=== PATIENT | female | born 1995 | race Caucasian/White ===

== ENCOUNTER 2017-01-18 00:06 | Emergency (ER) | payer OTHER ==
[~2017-01-18] VITALS: Ht 160 cm; Wt 76.5 kg
[2017-01-18 00:11] VITALS: Ht 160 cm; Wt 76.5 kg
[2017-01-18 00:54] LABS: URINE BLOOD (Dip) POC 2+ (NEGATIVE)
--- NOTE | 2017-01-18 01:27 | ERA ---
ER Documentation Chief Complaint Date/Time DATE: 01/18/17 TIME: 01:24 Chief Complaint back pain x2 days, cough x 6 days HPI This is an otherwise healthy 21-year-old female presenting with a chief complaint of cough 2 weeks and right abdominal/back pain 2-3 days. Patient has not done anything to relieve the symptoms. Patient denies fever, vomiting, nausea, diarrhea, constipation, headache, pharyngitis or sinus congestion. Patient denies any medical history, recent travel or recent antibiotic use. Has no other complaints and describes no other associated manifestations. ROS All systems reviewed and are negative except as per history of present illness. Medications Home Meds Active Scripts Acetaminophen* (Tylenol*) 325 Mg Tablet, 1 TAB PO Q6 Y for PAIN AND OR ELEVATED TEMP, #20 TAB Prov:MEHNAZ CROOK PA-C 01/18/17 Nitrofurantoin Monohyd Macrocr* (Macrobid*) 100 Mg Capsr, 100 MG PO HS for 5 Days, CAP Prov:MEHNAZ CROOK PA-C 01/18/17 Allergies Allergies: Coded Allergies: No Known Allergy (Unverified , 01/18/17) PMhx/Soc Medical and Surgical Hx: pt denies Medical Hx, pt denies Surgical Hx Hx Alcohol Use: No Hx Substance Use: No Hx Tobacco Use: Yes Smoking Status: Former smoker Physical Exam Vitals Vital Signs Date Time Temp Pulse Resp B/P Pulse Ox O2 Delivery O2 Flow Rate FiO2 01/18/17 00:11 98.2 83 20 113/65 98 Physical Exam Const: Well-appearing overweight 21-year-old female in no acute distress Head: Atraumatic Eyes: Normal Conjunctiva ENT: Normal External Ears, Nose and Mouth. Neck: Full range of motion..~ No meningismus. Resp: Clear to auscultation bilaterally. Good air movement with equal chest expansion. Cardio: Regular rate and rhythm, no murmurs Abd: Mild suprapubic tenderness. Soft, non tender, non distended. Normal bowel sounds Skin: No petechiae or rashes Back: No midline or flank tenderness. No CVA tenderness. Ext: No cyanosis, or edema Neur: Awake and alert Psych: Normal Mood and Affect Results 24 hrs Laboratory Tests Test 01/18/17 00:58 Bedside Urine pH (LAB) 7.5 Bedside Urine Protein (LAB) Negative Bedside Urine Glucose (UA) Negative Bedside Urine Ketones (LAB) Negative Bedside Urine Blood 2+ Bedside Urine Nitrite (LAB) Negative Bedside Urine Leukocyte Esterase (L Trace Current Medications Medications (Trade) Dose Ordered Sig/Anita Route PRN Reason Start Time Stop Time Status Last Admin Dose Admin Acetaminophen (Tylenol Tab) 650 mg ONCE ONCE PO 01/18/17 01:30 01/18/17 01:31 DC 01/18/17 01:45 Procedures/MDM This is a otherwise healthy 21-year-old female presenting with a chief complaint of cough 1 week and back/right abdominal pain 2 days as described in history and physical examination. Suprapubic tenderness and physical exam led to urine dip to evaluate for infection. A urine was also taken which was negative. Urine dip revealed the following: Trace leukocyte esterase. Chest x-ray was taken due to the continued symptoms. Chest x-ray was read by the radiologist and reveal the following impression: No active cardiopulmonary disorder. At this time the most likely diagnosis is urinary tract infection of unspecified location. At this time I have little suspicion for pneumonia, malignancy, pneumothorax, foreign body, asthma, pulmonary embolism. I have spoken with them regarding their condition and future management. They have verbally responded that they understand and agree to their status and treatment plan. I have spoke with my attending who agrees with the assessment and plan. The patients vitals are stable, and their current condition is appropriate for discharge. The patient will be given discharge instructions with return precautions. Patient will be discharged with Keflex for urinary tract infection and acetaminophen for fever control. Departure Diagnosis: Primary Impression: Urinary tract infection Qualified Code: N39.0 - Urinary tract infection with hematuria, site unspecified Additional Impression: Cough Condition: Stable Additional Instructions: Follow up with your PCP within the next 1-3 days for a more thorough evaluation and a possible referral to a specialist. Return the the emergency department immediately if symptoms worsen or change. If you have any questions regarding medications, ask your pharmacist or us before you leave. If any adverse reactions occur while taking your medications, discontinue the treatment and return to the emergency department immediately. Take your medications as directed, and complete the entire course of treatment. MEHNAZ CROOK PA-C Jan 18, 2017 01:27
[2017-01-18] MEDS ORDERED: ACETAMINOPHEN 325 MG TAB PO ONE (01:30)
--- NOTE | 2017-01-18 02:28 | RADRPT ---
PROCEDURE: XR Chest. CLINICAL INDICATION: Cough. TECHNIQUE: PA and Lateral views of the chest were obtained. COMPARISON: None. FINDINGS: The cardiomediastinal silhouette is within normal limits. The lungs are clear. No signs of pleural f luid or pneumothorax are seen. The osseous structures and soft tissues are unremarkable. IMPRESSION: No evidence for active cardiopulmonary disease. RPTAT: [facility]U Physician Morteza Date Time Electronically viewed and signed by Physician Morteza on 01/18/2017 02:27 RS/
[2017-01-18] MEDS ORDERED: NITR-58 PO (02:31)
[2017-01-18] MEDS ORDERED: ACET325T33 PO (02:32)
== END 2017-01-18 03:09 | disposition home or self-care (01) ==
LOC: FTE 00:06
DX: N39.0 Urinary tract infection, site not specified (principal); R05 Cough; Z87.891 Personal history of nicotine dependence
CPT/HCPCS: 71020; 81003; Z7502; Z7610

== ENCOUNTER 2017-02-24 17:23 | Emergency (ER) | payer OTHER ==
[~2017-02-24] VITALS: Wt 76.0 kg
[~2017-02-24 17:23] MED LIST: ACET325T33 PO; NITR-58 PO
[2017-02-24] MEDS ORDERED: LIDOCAINE/MYLANTA 40 ML BTL PO ONE (18:30)
[2017-02-24] MEDS ORDERED: RANI150T9 PO (18:31)
[2017-02-24] MEDS ORDERED: OMEP20CA16 PO (18:32)
--- NOTE | 2017-02-24 21:02 | ERD ---
ER Documentation Chief Complaint Date/Time DATE: 02/24/17 TIME: 20:58 Chief Complaint EPIGASTRIC PAIN, CONSTIPATION X 3 DAYS HPI This patient is a 21-year-old female presenting to the emergency department with complaints of epigastric pain ongoing for the past 3 days. She does have a history of acid reflux. Spicy foods aggravate her symptoms. Additionally she has not had a bowel movement in the past 2 days, however she has had intermittent constipation in the past. She reports 6 out of 10 pain epigastric. She has been taking Tums with no relief. She denies alleviating factors currently. She denies urinary symptoms, nausea, vomiting, diarrhea, lower abdominal pain, dizziness, chest pain, shortness of breath, or other symptoms currently. ROS All systems reviewed and are negative except as per history of present illness. Medications Home Meds Active Scripts Omeprazole* (Omeprazole*) 20 Mg Capsule.dr, 20 MG PO DAILY, #30 Prov:IRENA ZARAGOZA PA-C 02/24/17 Ranitidine Hcl* (Zantac*) 150 Mg Tablet, 150 MG PO BID Y for EPIGASTRIC PAIN, # 30 TAB Prov:IRENA ZARAGOZA PA-C 02/24/17 Acetaminophen* (Tylenol*) 325 Mg Tablet, 1 TAB PO Q6 Y for PAIN AND OR ELEVATED TEMP, #20 TAB Prov:MEHNAZ CROOK PA-C 01/18/17 Nitrofurantoin Monohyd Macrocr* (Macrobid*) 100 Mg Capsr, 100 MG PO HS for 5 Days, CAP Prov:MEHNAZ CROOK PA-C 01/18/17 Allergies Allergies: Coded Allergies: No Known Allergy (Unverified , 01/18/17) PMhx/Soc Medical and Surgical Hx: pt denies Medical Hx, pt denies Surgical Hx History of Surgery: No Anesthesia Reaction: No Hx Neurological Disorder: No Hx Cardiac Disorders: No Hx Psychiatric Problems: No Hx Miscellaneous Medical Probl: No Hx Alcohol Use: No Hx Substance Use: No Hx Tobacco Use: Yes Smoking Status: Never smoker Physical Exam Vitals Vital Signs Date Time Temp Pulse Resp B/P Pulse Ox O2 Delivery O2 Flow Rate FiO2 02/24/17 17:26 99.3 67 18 124/72 99 Physical Exam Const: Nontoxic, well-appearing female in no acute distress. Head: Atraumatic Eyes: Normal Conjunctiva ENT: Normal External Ears, Nose and Mouth. Neck: Full range of motion..~ No meningismus. Resp: Clear to auscultation bilaterally Cardio: Regular rate and rhythm, no murmurs Abd: Soft, mild midepigastric tenderness to palpation but no right upper quadrant tenderness, no McBurney's point tenderness, no rebound tenderness or guarding, non distended. Normal bowel sounds. Negative Chavarria sign. Skin: No petechiae or rashes Back: No midline or flank tenderness Ext: No cyanosis, or edema Neur: Awake and alert Psych: Normal Mood and Affect Results 24 hrs Current Medications Medications (Trade) Dose Ordered Sig/Anita Route PRN Reason Start Time Stop Time Status Last Admin Dose Admin Miscellaneous Medication (Gi Cocktail (2)) 40 ml ONCE ONCE PO 02/24/17 18:30 02/24/17 18:31 DC 02/24/17 18:41 Procedures/MDM 21-year-old female presenting for epigastric pain. She has had this in the past. She had stable vital signs. She had no physical examination signs concerning for appendicitis or cholecystitis. I believe the patient's symptoms are likely secondary to gastroesophageal reflux disease. She is given a GI cocktail in the department and she was feeling improved on reevaluation. She was given prescriptions for omeprazole and ranitidine. I have low suspicion for acute abdomen, acute coronary syndrome, bowel obstruction, mesenteric ischemia, sepsis, or other emergent conditions. The patient was hemodynamically stable prior to discharge. She agreed with the discharge plan and diagnosis. Strict ER return precautions were discussed. The patient is to have close follow-up with a primary care physician. Departure Diagnosis: Primary Impression: Epigastric pain Condition: Fair Patient Instructions: Gerd (Adult) Referrals: [facility] YOU HAVE RECEIVED A MEDICAL SCREENING EXAM AND THE RESULTS INDICATE THAT YOU DO NOT HAVE A CONDITION THAT REQUIRES URGENT TREATMENT IN THE EMERGENCY DEPARTMENT. FURTHER EVALUATION AND TREATMENT OF YOUR CONDITION CAN WAIT UNTIL YOU ARE SEEN IN YOUR DOCTORS OFFICE WITHIN THE NEXT 1-2 DAYS. IT IS YOUR RESPONSIBILITY TO MAKE AN APPOINTMENT FOR FOLOW-UP CARE. IF YOU HAVE A PRIMARY DOCTOR --you should call your primary doctor and schedule an appointment IF YOU DO NOT HAVE A PRIMARY DOCTOR YOU CAN CALL OUR PHYSICIAN REFERRAL HOTLINE AT IF YOU CAN NOT AFFORD TO SEE A PHYSICIAN YOU CAN CHOSE FROM THE FOLLOWING [facility] CLINICS [facility] [address] [facility] [address] [facility] [address] [facility] [address] [facility] [address] [facility]. [facility] [address] Additional Instructions: Follow up with your PCP within the next 1-3 days for a repeat evaluation. If you require a referral to a specialist, your Primary Care Provider may be able to provide this for you. In most patient cases, a referral is not required. If you have further questions regarding this matter, please ask your Primary Care Provider. Return the the emergency department immediately if symptoms worsen or change. If you have any questions regarding medications, ask your pharmacist or us before you leave. If any adverse reactions, occur while taking your medications, discontinue the treatment and return to the emergency department immediately. If any new or worsening symptoms, uncontrolled fevers, or other unexplained symptoms occur, return to the emergency department immediately. Take your medications as directed, and complete the entire course of treatment. IRENA ZARAGOZA PA-C Feb 24, 2017 21:02
== END 2017-02-24 18:45 | disposition home or self-care (01) ==
LOC: FTE 17:23
DX: R10.13 Epigastric pain (principal); Z87.891 Personal history of nicotine dependence
CPT/HCPCS: Z7502; Z7610; 99283

== ENCOUNTER 2017-04-23 11:54 | Emergency (ER) | payer OTHER ==
[~2017-04-23] VITALS: Ht 160 cm; Wt 76.5 kg
[~2017-04-23 11:54] MED LIST changes: +IBUP-1542 PO; +OMEP20CA16 PO; +RANI150T9 PO
[2017-04-23 12:01] VITALS: Ht 160 cm; Wt 76.5 kg
[2017-04-23] MEDS ORDERED: SOD CHLORIDE 0.9% 1,000 ML IV STA (13:47)
[2017-04-23] MEDS ORDERED: MECLIZINE 12.5 MG TAB PO ONE (14:00)
[2017-04-23 14:21] LABS: ADD UMIC YES; UR ASCORBIC ACID NEGATIVE (NEGATIVE); UR BACTERIA FEW /HPF (NONE SEEN); UR BILIRUBIN (Dip) NEGATIVE (NEGATIVE); UR BLOOD (Dip) 3+ mg/dL (NEGATIVE); UR CLARITY CLEAR (CLEAR); UR COLOR YELLOW (YELLOW); UR GLUCOSE (Dip) NEGATIVE (NEGATIVE); UR KETONES (Dip) NEGATIVE (NEGATIVE); UR LEUKOCYTE ESTERASE (Dip) NEGATIVE Leu/ul (NEGATIVE); UR NITRITE (Dip) NEGATIVE (NEGATIVE); UR RBC > 182 /HPF (0-5); UR SPECIFIC GRAVITY (Dip) 1.014 (1.003-1.030); UR TOTAL PROTEIN (Dip) NEGATIVE (NEGATIVE); UR UROBILINOGEN (Dip) NEGATIVE (NEGATIVE)
[2017-04-23 14:23] LABS: BASOPHILS % 0.4 % (0.0-2.0); EOSINOPHILS # 0.1 10^3/ul (0.0-0.5); EOSINOPHILS % 1.4 % (0.0-7.0); HEMATOCRIT 41.2 % (37.0-47.0); HEMOGLOBIN 14.2 g/dl (12.0-16.0); LYMPHOCYTES # 3.1 10^3/ul (0.8-2.9); LYMPHOCYTES % 30.5 % (15.0-51.0); MEAN CORPUSCULAR HGB CONC 34.5 g/dl (32.0-37.0); MEAN PLATELET VOLUME 8.7 fl (7.4-10.4); MONOCYTE # 0.8 10^3/ul (0.3-0.9); MONOCYTES % 7.5 % (0.0-11.0); NEUTROPHIL # 6.2 10^3/ul (1.6-7.5); NEUTROPHILS % 59.9 % (39.0-77.0); PLATELET COUNT 331 10^3/UL (140-415); RED BLOOD COUNT 4.58 10^6/ul (4.20-5.40); RED CELL DISTRIBUTION WIDTH 11.9 % (11.5-14.5); WHITE BLOOD COUNT 10.3 10^3/ul (4.8-10.8)
[2017-04-23 14:52] LABS: ALBUMIN 4.3 g/dl (3.3-4.9); ALBUMIN/GLOBULIN RATIO 1.38; BILIRUBIN,INDIRECT 0.2 mg/dl (0-1.1); BILIRUBIN,TOTAL 0.2 mg/dl (0.2-1.3); CALCIUM 9.3 mg/dl (8.4-10.2); CREATININE 0.66 mg/dl (0.44-1.00); POTASSIUM 3.8 mmol/L (3.5-5.1); TOTAL PROTEIN 7.4 g/dl (6.1-8.1)
[2017-04-23] MEDS ORDERED: MECL12.574 PO (15:41)
--- NOTE | 2017-04-23 18:56 | ERD ---
ER Documentation Chief Complaint Date/Time DATE: 04/23/17 TIME: 18:54 Chief Complaint dizziness and nausea since yesterday HPI 21-year-old female patient with no significant past medical history presents to the ED complaining of dizziness that started yesterday. The dizziness is worse with movement. Reports that it is worse when she gets up out of her seat. Reports that it is worse today. States that her last menses was 4 months ago but started having vaginal bleeding today. Reports that she is nauseous but denies any vomiting. States that she is not . Denies any vaginal discharge, dysuria, urgency, frequency, chest pain, shortness of breath, abdominal pain, vomiting, diarrhea, constipation. ROS All systems reviewed and are negative except as per history of present illness. Medications Home Meds Active Scripts Meclizine Hcl* (Antivert*) 12.5 Mg Tab, 12.5 MG PO Q6H Y for DIZZINESS, #20 TAB Prov:DRAKE GOODMAN PA-C 04/23/17 Ibuprofen* (Motrin*) 600 Mg Tab, 600 MG PO Q6, #30 TAB Prov:TAWANA MCGEE PA-C 03/09/17 Omeprazole* (Omeprazole*) 20 Mg Capsule.dr, 20 MG PO DAILY, #30 Prov:IRENA ZARAGOZA PA-C 02/24/17 Ranitidine Hcl* (Zantac*) 150 Mg Tablet, 150 MG PO BID Y for EPIGASTRIC PAIN, # 30 TAB Prov:IRENA ZARAGOZA PA-C 02/24/17 Acetaminophen* (Tylenol*) 325 Mg Tablet, 1 TAB PO Q6 Y for PAIN AND OR ELEVATED TEMP, #20 TAB Prov:MEHNAZ CROOK PA-C 01/18/17 Nitrofurantoin Monohyd Macrocr* (Macrobid*) 100 Mg Capsr, 100 MG PO HS for 5 Days, CAP Prov:MEHNAZ CROOK PA-C 01/18/17 Allergies Allergies: Coded Allergies: No Known Allergy (Unverified , 03/09/17) PMhx/Soc History of Surgery: No Anesthesia Reaction: No Hx Neurological Disorder: No Hx Cardiac Disorders: No Hx Psychiatric Problems: No Hx Miscellaneous Medical Probl: No Hx Alcohol Use: No Hx Substance Use: No Hx Tobacco Use: Yes Smoking Status: Never smoker Physical Exam Vitals Vital Signs Date Time Temp Pulse Resp B/P Pulse Ox O2 Delivery O2 Flow Rate FiO2 04/23/17 12:01 98.0 61 18 115/78 98 Physical Exam Const: [id number], well-nourished. In no acute distress. Head: Atraumatic, normocephalic Eyes: Normal Conjunctiva without injection. No purulent discharge. PERRLA. EOMI ENT: Normal external ear. Ear canal without erythema. Tympanic membrane pearly bhagat without effusion or bulging. Nasal canal clear with normal turbinates. Moist oropharynx without tonsillar exudates. Non-erythematous pharynx. Uvula midline. No drooling. No trismus. Neck: No cervical midline tenderness. Full range of motion. No meningismus. No cervical lymphadenopathy. No JVD. Resp: Clear to auscultation bilaterally. No wheezing, rhonchi, rales, or crackles. No accessory muscle use. No retractions. Cardio: Regular rate and rhythm. No murmurs, rubs or gallops. Abd: Soft, non tender, non distended. Normal bowel sounds. No palpable masses. No rebound tenderness. No guarding. Negative McBurney's Point. Negative Chavarria's Sign. Skin: Normal skin turgor. No petechiae or rashes Back: No midline tenderness. No CVA tenderness. Ext: No cyanosis, or edema. Distal pulses intact bilaterally. Neur: Awake and alert. Normal gait. Normal coordination. Cranial Nerves II- VII intact. Normal finger to nose. Muscle strength 5/5. Sensation intact. Psych: Normal Mood and Affect Result Diagram: 04/23/17 1400 04/23/17 1400 Results 24 hrs Laboratory Tests Test 04/23/17 13:25 04/23/17 14:00 Urine Color YELLOW Urine Clarity CLEAR Urine pH 8.0 Urine Specific [place] 1.014 Urine Ketones NEGATIVEmg/dL Urine Nitrite NEGATIVEmg/dL Urine Bilirubin NEGATIVEmg/dL Urine Urobilinogen NEGATIVEmg/dL Urine Leukocyte Esterase NEGATIVELeu/ul Urine Microscopic RBC > 182/HPF Urine Microscopic WBC 8/HPF Urine Bacteria FEW/HPF Urine Hemoglobin 3+mg/dL Urine Glucose NEGATIVEmg/dL Urine Total Protein NEGATIVEmg/dl White Blood Count 10.310^3/ul Red Blood Count 4.5810^6/ul Hemoglobin 14.2g/dl Hematocrit 41.2% Mean Corpuscular Volume 90.0fl Mean Corpuscular Hemoglobin 31.0pg Mean Corpuscular Hemoglobin Concent 34.5g/dl Red Cell Distribution Width 11.9% Platelet Count 26168^3/UL Mean Platelet Volume 8.7fl Neutrophils % 59.9% Lymphocytes % 30.5% Monocytes % 7.5% Eosinophils % 1.4% Basophils % 0.4% Nucleated Red Blood Cells % 0.0/100WBC Neutrophils # 6.210^3/ul Lymphocytes # 3.110^3/ul Monocytes # 0.810^3/ul Eosinophils # 0.110^3/ul Basophils # 0.010^3/ul Nucleated Red Blood Cells # 0.010^3/ul Sodium Level 139mmol/L Potassium Level 3.8mmol/L Chloride Level 105mmol/L Carbon Dioxide Level 26mmol/L Anion Gap 12 Blood Urea Nitrogen 10mg/dl Creatinine 0.66mg/dl Glucose Level 85mg/dl Calcium Level 9.3mg/dl Total Bilirubin 0.2mg/dl Direct Bilirubin 0.00mg/dl Indirect Bilirubin 0.2mg/dl Aspartate Amino Transf (AST/SGOT) 19IU/L Alanine Aminotransferase (ALT/SGPT) 41IU/L Alkaline Phosphatase 79IU/L Total Protein 7.4g/dl Albumin 4.3g/dl Globulin 3.10g/dl Albumin/Globulin Ratio 1.38 Serum HCG, Qualitative NEGATIVE Current Medications Medications (Trade) Dose Ordered Sig/Anita Route PRN Reason Start Time Stop Time Status Last Admin Dose Admin Sodium Chloride (NS) 1,000 ml @ 1,000 mls/hr Q1H STAT IV 04/23/17 13:47 04/23/17 14:46 DC 04/23/17 14:04 Meclizine HCl (Antivert) 25 mg ONCE ONCE PO 04/23/17 14:00 04/23/17 14:01 DC 04/23/17 14:09 Procedures/MDM 21-year-old female patient with no significant past medical history presents the ED complaining of dizziness and nausea. Patient is afebrile nontoxic appearing. Patient was further worked up with CBC, CMP, UA. Patient's pain and symptoms have improved after treatment with 1 L normal saline, meclizine 25 mg. CBC: No leukocytosis. No e/o of systemic infection. No e/o anemia. CMP: No e/o severe acidosis, alkalosis, renal failure, diabetic ketoacidosis, liver disease Lipase within normal limits. Urine: No leukocyte esterase, no nitrites, no hematuria. Urine : negative Serum Hcg negative EKG reviewed and interpreted by Dr. Maldonado Rate/Rhythm: [51 bpm, Normal Sinus Rhythm] No ectopy, no ST elevations, normal axis. QRS, ST, T-waves: [No changes consistent w/ acute ischemia] Impression: [No evidence of ischemia or arrhythmia] Differentials include benign positional vertigo. Low suspicion for dehydration , acute myocardial infarction, pneumothorax, pneumonia, cardiac tamponade, pulmonary embolism, AAA, aortic dissection, thoracic aortic dissection, endocarditis, pericarditis, cocaine-related ischemia, Boerhaave's syndrome, cardiac dysrhythmias,meningitis, intracranial bleed, seizure, stroke, TIA or other emergent conditions. Low suspicion for ectopic , ovarian torsion , gastritis, GERD, peptic ulcer disease, cholecystitis, choledocholithiasis, cholangitis, pancreatitis, appendicitis, bowel obstruction, ileus, volvulus, nephrolithiasis, pyelonephritis, hepatitis, perforated viscus, diverticulitis, strangulated/incarcerated hernia, DKA, acute abdomen, mesenteric ischemia or other emergent conditions. Discharge medications: Meclizine Follow up with primary care physician in 1-2 days for referral to machine turner. Instructed patient to return to the ED sooner for any worsening symptoms. Patient's questions were answered. Patient understood and agreed with discharge plan. Patient discharged stable. Departure Diagnosis: Primary Impression: Dizziness Condition: Stable Patient Instructions: Inner Ear Problems: Causes of Dizziness (Vertigo), Dizziness, Unk Cause Referrals: [facility] YOU HAVE RECEIVED A MEDICAL SCREENING EXAM AND THE RESULTS INDICATE THAT YOU DO NOT HAVE A CONDITION THAT REQUIRES URGENT TREATMENT IN THE EMERGENCY DEPARTMENT. FURTHER EVALUATION AND TREATMENT OF YOUR CONDITION CAN WAIT UNTIL YOU ARE SEEN IN YOUR DOCTORS OFFICE WITHIN THE NEXT 1-2 DAYS. IT IS YOUR RESPONSIBILITY TO MAKE AN APPOINTMENT FOR FOLOW-UP CARE. IF YOU HAVE A PRIMARY DOCTOR --you should call your primary doctor and schedule an appointment IF YOU DO NOT HAVE A PRIMARY DOCTOR YOU CAN CALL OUR PHYSICIAN REFERRAL HOTLINE AT IF YOU CAN NOT AFFORD TO SEE A PHYSICIAN YOU CAN CHOSE FROM THE FOLLOWING [facility] CLINICS [facility] [address] [facility] [address] [facility] [address] [facility] [address] [facility] [address] [facility]. [facility] [address] [facility]. [facility] YOU HAVE RECEIVED A MEDICAL SCREENING EXAM AND THE RESULTS INDICATE THAT YOU DO NOT HAVE A CONDITION THAT REQUIRES URGENT TREATMENT IN THE EMERGENCY DEPARTMENT. FURTHER EVALUATION AND TREATMENT OF YOUR CONDITION CAN WAIT UNTIL YOU ARE SEEN IN YOUR DOCTORS OFFICE WITHIN THE NEXT 1-2 DAYS. IT IS YOUR RESPONSIBILITY TO MAKE AN APPOINTMENT FOR FOLOW-UP CARE. IF YOU HAVE A PRIMARY DOCTOR --you should call your primary doctor and schedule and appointment IF YOU DO NOT HAVE A PRIMARY DOCTOR YOU CAN CALL OUR PHYSICIAN REFERRAL HOTLINE AT . IF YOU CAN NOT AFFORD TO SEE A PHYSICIAN YOU CAN CHOSE FROM THE FOLLOWING [facility] INSTITUTIONS: [facility] [address] [place] [address] [facility] [address] [place] [address] [facility] [address] [place] [address] [facility] Additional Instructions: Call your primary care doctor TOMORROW for an appointment during the next 2-3 days.See the doctor sooner or return here if your condition worsens before your appointment time. DRAKE GOODMAN PA-C Apr 23, 2017 18:56 DRAKE GOODMAN PA-C Apr 23, 2017 18:56
== END 2017-04-23 16:03 | disposition home or self-care (01) ==
LOC: FTE 11:54
DX: R42 Dizziness and giddiness (principal); Z87.891 Personal history of nicotine dependence
CPT/HCPCS: 36415; 80053; 81001; 84703; 85025; 93005; J7030; Z7502; Z7610

== ENCOUNTER 2017-06-23 16:48 | Emergency (ER) | payer OTHER ==
[~2017-06-23] VITALS: Ht 165.1 cm; Wt 75.7 kg
[~2017-06-23 16:48] MED LIST changes: +MECL12.574 PO
[2017-06-23 17:12] VITALS: Ht 165.1 cm; Wt 75.7 kg
--- NOTE | 2017-06-23 20:06 | ERD ---
ER Documentation Chief Complaint Chief Complaint chest congestion sinus pain head and fever yesterday HPI 22-year-old female presents emergency department for sinus pain, congestion, fever since yesterday. LMP: Unknown. A0. Denies that this is the worst headache of her life, head trauma, loss of consciousness,dizziness, change in vision, blurred vision, neck pain, throat pain, difficulty swallowing, shoulder pain, chest pain, back pain, difficulty breathing when lying flat, shortness of breath, abdominal pain, nausea, vomiting, constipation, diarrhea, loss of bowel bladder control, changes in bowel or bladder habits, urinary symptoms, or possibility of being , trauma, injury, falls, difficulty walking, numbness or tingling sensation, fever, chills. ROS All systems reviewed and are negative except as per history of present illness. Medications Home Meds Active Scripts Acetaminophen* (Tylophen*) 500 Mg Capsule, 1 CAP PO Q6H Y for PAIN AND OR ELEVATED TEMP, #20 CAP Prov:LORIE TAYLOR 06/23/17 Ibuprofen* (Motrin*) 800 Mg Tab, 800 MG PO Q8 Y for PAIN AND OR ELEVATED TEMP, # 30 TAB Prov:LORIE TAYLOR 06/23/17 Amoxicillin/Potassium Clav (Amox-Clav 875-125 mg Tablet) 875-125 mg Tab, 1 TAB PO BID for 7 Days, #14 TAB Prov:LORIE TAYLOR 06/23/17 Meclizine Hcl* (Antivert*) 12.5 Mg Tab, 12.5 MG PO Q6H Y for DIZZINESS, #20 TAB Prov:DRAKE GOODMAN PA-C 04/23/17 Ibuprofen* (Motrin*) 600 Mg Tab, 600 MG PO Q6, #30 TAB Prov:TAWANA MCGEE PA-C 03/09/17 Omeprazole* (Omeprazole*) 20 Mg Capsule.dr, 20 MG PO DAILY, #30 Prov:IRENA ZARAGOZA PA-C 02/24/17 Ranitidine Hcl* (Zantac*) 150 Mg Tablet, 150 MG PO BID Y for EPIGASTRIC PAIN, # 30 TAB Prov:IRENA ZARAGOZA PA-C 02/24/17 Acetaminophen* (Tylenol*) 325 Mg Tablet, 1 TAB PO Q6 Y for PAIN AND OR ELEVATED TEMP, #20 TAB Prov:MEHNAZ CROOK PA-C 01/18/17 Nitrofurantoin Monohyd Macrocr* (Macrobid*) 100 Mg Capsr, 100 MG PO HS for 5 Days, CAP Prov:MEHNAZ CROOK PA-C 01/18/17 Allergies Allergies: Coded Allergies: No Known Allergy (Unverified , 03/09/17) PMhx/Soc History of Surgery: No Anesthesia Reaction: No Hx Neurological Disorder: No Hx Cardiac Disorders: No Hx Psychiatric Problems: No Hx Miscellaneous Medical Probl: No Hx Alcohol Use: No Hx Substance Use: No Hx Tobacco Use: Yes Physical Exam Vitals Vital Signs Date Time Temp Pulse Resp B/P Pulse Ox O2 Delivery O2 Flow Rate FiO2 06/23/17 20:24 98.6 83 16 125/74 100 Room Air 06/23/17 17:12 98.0 79 18 123/69 98 Physical Exam Const:Well-appearing. Not in acute distress. Head: Atraumatic Eyes: Normal Conjunctiva. Extraocular movement of her eyes is within normal limits. There is no pain on eye movement. No visual field loss. ENT: Normal External Ears, Nose and Mouth. Bilateral tympanic membranes are erythematous. No bleeding. No discharge. No hearing loss bilaterally. Throat : Uvula is midline and not displaced. Tonsils are +2 with mild redness but no exudates. Tolerating secretions. Patent airway. Speaks full and clear sentences. Has frontal and maxillary sinus tenderness on palpation. Neck: Full range of motion..~ No meningismus. No signs of meningeal irritation. Resp: Clear to auscultation bilaterally Cardio: Regular rate and rhythm, no murmurs Abd: Soft, non tender, non distended. Normal bowel sounds Skin: No petechiae or rashes Back: No midline or flank tenderness Ext: No cyanosis, or edema Neur: Awake and alert. No neurological deficits. Romberg test is negative. Psych: Normal Mood and Affect Procedures/MDM I have low suspicion for subarachnoid hemorrhage, stroke, meningitis, pneumonia given the patient is healthy and well-appearing and due to my physical examination there is less likely to have an acute headache or meningeal irritation. My final diagnosis are sinusitis, with otitis media. Prescription : Augmentin. Motrin. Tylenol. Follow-up with PCP in the next 24-48 hours. Come back here in the emergency department for any new symptoms or any worsening symptoms. All questions and concerns are answered. Patient verbalized understanding and agreed with the plan of care. Hemodynamically stable on discharge. Departure Diagnosis: Primary Impression: Sinusitis Additional Impression: Otitis media Condition: Stable Additional Instructions: Follow-up with PCP in the next 24-48 hours. Come back here in the emergency department for any new symptoms or any worsening symptoms. All questions and concerns are answered. Patient verbalized understanding and agreed with the plan of care. LORIE TAYLOR Jun 23, 2017 20:06
[2017-06-23] MEDS ORDERED: ACET500C5 PO (20:07)
[2017-06-23] MEDS ORDERED: AMOX1TAB10 PO (20:07)
[2017-06-23] MEDS ORDERED: IBUP800T25 PO (20:07)
[2017-06-23 20:24] VITALS: BP 125/74; PULSE 83; RESP 16; TEMP 98.6
== END 2017-06-23 20:25 | disposition home or self-care (01) ==
LOC: FTE 16:48
DX: J01.90 Acute sinusitis, unspecified (principal); H66.93 Otitis media, unspecified, bilateral
CPT/HCPCS: 99283

== ENCOUNTER 2017-07-20 10:40 | Emergency (ER) | payer OTHER ==
[~2017-07-20] VITALS: Ht 160 cm; Wt 76.5 kg
[~2017-07-20 10:40] MED LIST changes: +ACET500C5 PO; +AMOX1TAB10 PO; +IBUP800T25 PO
[2017-07-20 10:42] VITALS: Ht 160 cm; Wt 76.5 kg
[2017-07-20 12:57] LABS: URINE BLOOD (Dip) POC 3+ (NEGATIVE)
[2017-07-20 13:25] LABS: ADD UMIC YES; UR ASCORBIC ACID NEGATIVE (NEGATIVE); UR BILIRUBIN (Dip) NEGATIVE (NEGATIVE); UR BLOOD (Dip) 3+ mg/dL (NEGATIVE); UR CLARITY CLEAR (CLEAR); UR COLOR STRAW (YELLOW); UR GLUCOSE (Dip) 1+ mg/dL (NEGATIVE); UR KETONES (Dip) NEGATIVE (NEGATIVE); UR LEUKOCYTE ESTERASE (Dip) NEGATIVE Leu/ul (NEGATIVE); UR NITRITE (Dip) NEGATIVE (NEGATIVE); UR RBC 31 /HPF (0-5); UR SPECIFIC GRAVITY (Dip) 1.016 (1.003-1.030); UR SQUAMOUS EPITHELIAL CELL FEW /HPF (FEW); UR TOTAL PROTEIN (Dip) NEGATIVE (NEGATIVE); UR UROBILINOGEN (Dip) NEGATIVE (NEGATIVE)
[2017-07-20] MEDS ORDERED: PHEN-537 PO (14:11)
--- NOTE | 2017-07-20 14:42 | ERD ---
ER Documentation Chief Complaint Chief Complaint burning urination x 4 days HPI Patient is a 22-year-old female presents ED for concerns of burning pain with urination. Patient reports dysuria, frequency and urgency. Patient denies any hematuria. Patient denies any fevers or chills. Patient denies any flank pain. Patient denies any abdominal pain, nausea, vomiting, diarrhea. Patient denies any recent travel. Patient denies any chest pain, shortness of breath or LOC. Patient states her last mental period was on 05-28-17. Patient is sexually active. ROS All systems reviewed and are negative except as per history of present illness. Medications Home Meds Active Scripts Phenazopyridine Hcl* (Pyridium*) 100 Mg Tab, 100 MG PO TID Y for URINARY PAIN, # 8 TAB Prov:RAFAEL THORNTON PA-C 07/20/17 Acetaminophen* (Tylophen*) 500 Mg Capsule, 1 CAP PO Q6H Y for PAIN AND OR ELEVATED TEMP, #20 CAP Prov:LORIE TAYLOR 06/23/17 Ibuprofen* (Motrin*) 800 Mg Tab, 800 MG PO Q8 Y for PAIN AND OR ELEVATED TEMP, # 30 TAB Prov:LORIE TAYLOR 06/23/17 Amoxicillin/Potassium Clav (Amox-Clav 875-125 mg Tablet) 875-125 mg Tab, 1 TAB PO BID for 7 Days, #14 TAB Prov:LORIE TAYLOR 06/23/17 Meclizine Hcl* (Antivert*) 12.5 Mg Tab, 12.5 MG PO Q6H Y for DIZZINESS, #20 TAB Prov:DRAKE GOODMAN PA-C 04/23/17 Ibuprofen* (Motrin*) 600 Mg Tab, 600 MG PO Q6, #30 TAB Prov:TAWANA MCGEE PA-C 03/09/17 Omeprazole* (Omeprazole*) 20 Mg Capsule.dr, 20 MG PO DAILY, #30 Prov:IRENA ZARAGOZA PA-C 02/24/17 Ranitidine Hcl* (Zantac*) 150 Mg Tablet, 150 MG PO BID Y for EPIGASTRIC PAIN, # 30 TAB Prov:IRENA ZARAGOZA PA-C 02/24/17 Acetaminophen* (Tylenol*) 325 Mg Tablet, 1 TAB PO Q6 Y for PAIN AND OR ELEVATED TEMP, #20 TAB Prov:MEHNAZ CROOK PA-C 01/18/17 Nitrofurantoin Monohyd Macrocr* (Macrobid*) 100 Mg Capsr, 100 MG PO HS for 5 Days, CAP Prov:MEHNAZ CROOK PA-C 01/18/17 Allergies Allergies: Coded Allergies: No Known Allergy (Unverified , 03/09/17) PMhx/Soc History of Surgery: No Anesthesia Reaction: No Hx Neurological Disorder: No Hx Cardiac Disorders: No Hx Psychiatric Problems: No Hx Miscellaneous Medical Probl: No Hx Alcohol Use: No Hx Substance Use: No Hx Tobacco Use: Yes Smoking Status: Current some day smoker Physical Exam Vitals Vital Signs Date Time Temp Pulse Resp B/P Pulse Ox O2 Delivery O2 Flow Rate FiO2 07/20/17 10:42 97.3 67 16 111/70 97 Physical Exam GENERAL: Well-developed, well-nourished female. Appears in no acute distress. HEAD: Normocephalic, atraumatic. EYES: Pupils are equally reactive bilaterally. EOMs grossly intact. No conjunctival erythema. Speaking in full sentences. ENT: Moist mucous membranes. No uvula deviation. No kissing tonsils. NECK: Supple. No meningismus. Normal range of motion of the neck. LUNG: Clear to auscultation bilaterally. No rhonchi, wheezing, rales or coarse breath sounds. HEART: Regular rate and rhythm. No murmurs, rubs or gallops. ABDOMEN:. Soft and nondistended. Tenderness to palpation in the suprapubic region. No rebound tenderness, no guarding. (-) McBurney's point tenderness. No bilateral CVA tenderness. FEMALE GENITALIA: Exam was completed with a ethylbenzene converter helper present. Normal external female genitalia. Normal vaginal mucosal without lesions. Cervix visualized, normal in appearance without any erythema. No strawberry cervix. White, thick discharge noted throughout the vaginal vault and the os. No cervical motion tenderness is noted. EXTREMITIES: Equal pulses bilaterally. No peripheral clubbing, cyanosis or edema. No unilateral leg swelling. NEUROLOGIC: Alert and oriented. Moving all four extremities without any difficulty. Normal speech. Steady gait. SKIN: Normal color. Warm and dry. No rashes or lesions. Results 24 hrs Laboratory Tests Test 07/20/17 12:55 07/20/17 12:59 Urine Color STRAW Urine Clarity CLEAR Urine pH 6.0 Urine Specific Baxter 1.016 Urine Ketones NEGATIVEmg/dL Urine Nitrite NEGATIVEmg/dL Urine Bilirubin NEGATIVEmg/dL Urine Urobilinogen NEGATIVEmg/dL Urine Leukocyte Esterase NEGATIVELeu/ul Urine Microscopic RBC 31/HPF Urine Microscopic WBC 1/HPF Urine Squamous Epithelial Cells FEW/HPF Urine Hemoglobin 3+mg/dL Urine Glucose 1+mg/dL Urine Total Protein NEGATIVEmg/dl Bedside Urine pH (LAB) 6.5 Bedside Urine Protein (LAB) Negative Bedside Urine Glucose (UA) Negative Bedside Urine Ketones (LAB) Negative Bedside Urine Blood 3+ Bedside Urine Nitrite (LAB) Negative Bedside Urine Leukocyte Esterase (L Negative Procedures/MDM MEDICAL DECISION MAKING: This is a 22-year-old female who presents ED for concerns of dysuria, frequency and urgency 4 days. Patient denies any fevers, flank pain, chills, upper abdominal pain. Vital signs were reviewed. Patient was afebrile. UA showed 3+ blood. No signs of infection. Urine was sent for culture, results pending. Urine was negative. Upon discussing the patient's UA results with her , patient did admit that she was having increased vaginal discharge. Patient described her discharge to be white, thick and odorous. Patient wanted to be tested for STDs. Patient was advised that urine will be tested for STDs and results are pending. Patient will be contacted if she has a positive result. Pelvic exam was performed by myself. senior laboratory technician ethylbenzene converter helper for exam. Wet mount was obtained. Wet mount showed no signs of Trichomonas, clue cells or yeast. Patient was advised to follow-up with an RECEIVING SUPERVISOR an outpatient basis. Patient will need complete pelvic exam including Pap smear. Referral information was given. Patient symptoms may be due to getting her period soon given that she does have 3+ blood in her urine. At this time with patient presentation is most consistent with dysuria and vaginal discharge. No suspicion for UTI, pyelonephritis, nephrolithiasis, appendicitis, diverticulitis, ectopic , ovarian torsion, PID, trichomoniasis, BV, tubo-ovarian abscess. Unable to rule out bladder cancer at this time. Advised to follow-up with PCP or urologist if symptoms persist of hematuria. Patient was nontoxic, non-ill- appearing prior to discharge. PRESCRIPTIONS: Pyridium DISCHARGE: At this time, patient is stable for discharge and outpatient management. Patient given a copy of all studies completed today. Patient advised to follow- up with an RECEIVING SUPERVISOR in the next 1-2 days. For all information given. I have instructed the patient to follow-up with his/her primary care physician in 1-2 days. Patient should repeat UA in 2 weeks to check for resolution of urinary tract infection. If symptoms persist, patient may need to see a specialist for further examinations and testing. I have instructed the patient to promptly return to the ER at any time for any new or worsening symptoms including increased pain, fever, nausea, vomiting, urinary changes or weakness. The patient and/or family expressed understanding of and agreement with this plan. All questions were answered. Home care instructions were provided. Disclaimer: Inadvertent spelling and grammatical errors are likely due to EHR/ dictation software use and do not reflect on the overall quality of patient care. Also, please note that the electronic time recorded on this note does not necessarily reflect the actual time of the patient encounter. Departure Diagnosis: Primary Impression: Vaginal discharge Additional Impression: Dysuria Condition: Stable Patient Instructions: Dysuria, Preventing Vaginal Infection Referrals: [facility]CE[facility]PER[facility] REFERRAL LIST Additional Instructions: Call your primary care doctor TOMORROW for an appointment during the next 1-2 days.See the doctor sooner or return here if your condition worsens before your appointment time. RAFAEL THORNTON PA-C Jul 20, 2017 14:41
[2017-07-25] MEDS ORDERED: NITR-58 PO (00:38)
[2017-07-25] MEDS ORDERED: NAPR-260 PO (00:39)
== END 2017-07-20 14:25 | disposition home or self-care (01) ==
LOC: FTE 10:40
DX: N89.8 Other specified noninflammatory disorders of vagina (principal); R30.0 Dysuria; F17.210 Nicotine dependence, cigarettes, uncomplicated
CPT/HCPCS: 81001; 87086; 87210; 87591; Z7502; 81003

== ENCOUNTER 2017-07-24 17:36 | Emergency (ER) | END 2017-07-25 00:44 | disposition home or self-care (01) ==

== ENCOUNTER 2018-01-29 00:54 | Emergency (ER) | END 2018-01-29 04:54 | disposition home or self-care (01) ==